=== PATIENT | male | born 1965 | race Caucasian/White ===

== ENCOUNTER 2019-12-14 07:30 | Day surgery (SDC) | payer BC, MEDICARE ==
--- NOTE | 2019-12-10 12:39 | EKG REPORT ---
SEVERITY:- NORMAL ECG - SINUS RHYTHM : Confirmed by: Elaine Centeno 10-Dec-2019 12:38:59
[2019-12-10 13:42] LABS: ABSOLUTE EOSINOPHILS # (AUTO) 0.3 10^3/uL (0.0-0.6); ABSOLUTE LYMPHOCYTES (AUTO) 1.2 10^3/uL (0.5-4.7); ABSOLUTE MONOCYTES (AUTO) 0.5 10^3/uL (0.1-1.4); ABSOLUTE NEUT (AUTO) 2.3 10^3/uL (1.7-8.2); BASOPHILS % (AUTO) 0.3 % (0-2); EOSINOPHILS % (AUTO) 6.4 % (0-6); HEMATOCRIT 39.6 % (37.9-51.0); HEMOGLOBIN 13.3 g/dL (13.5-17.0); LYMPHOCYTES % (AUTO) 28.7 % (13-45); MEAN CORPUSCULAR HEMOGLOBIN 29.4 pg (27.0-33.4); MEAN CORPUSCULAR HGB CONC 33.7 g/dL (32.0-36.0); MEAN CORPUSCULAR VOLUME 87 fl (80-97); MONOCYTES % (AUTO) 10.7 % (3-13); PLATELET COUNT 218 10^3/uL (150-450); RED BLOOD COUNT 4.54 10^6/uL (4.35-5.55); RED CELL DISTRIBUTION WIDTH 15.2 % (11.5-14.0); SEGMENTED NEUTROPHILS % (AUTO) 53.9 % (42-78); TOTAL CELLS COUNTED % (AUTO) 100 %; WHITE BLOOD COUNT 4.2 10^3/uL (4.0-10.5)
[2019-12-10 13:58] LABS: ANION GAP 9 (5-19); BLOOD UREA NITROGEN 14 mg/dL (7-20); CALCIUM 9.5 mg/dL (8.4-10.2); CARBON DIOXIDE 27 mmol/L (22-30); CHLORIDE 103 mmol/L (98-107); GLUCOSE 95 mg/dL (75-110); POTASSIUM 4.8 mmol/L (3.6-5.0)
[~2019-12-14 07:30] MED LIST: CEFAZOLIN 2 GM/D5W RTU 2 GM/50 ML RTUPB IV PRN; LACTATED RINGERS 1000 ML IV PRN; LIDOCAINE 0.5% INJ-PF (5 MG/ML) 50 ML SDV SUBCUT PRN
[2019-12-14 08:05] LABS: HEMATOCRIT 38.5 % (37.9-51.0); HEMOGLOBIN 12.9 g/dL (13.5-17.0); MEAN CORPUSCULAR HEMOGLOBIN 29.3 pg (27.0-33.4); MEAN CORPUSCULAR HGB CONC 33.5 g/dL (32.0-36.0); MEAN CORPUSCULAR VOLUME 87 fl (80-97); PLATELET COUNT 211 10^3/uL (150-450); RED BLOOD COUNT 4.41 10^6/uL (4.35-5.55); RED CELL DISTRIBUTION WIDTH 14.9 % (11.5-14.0); WHITE BLOOD COUNT 5.3 10^3/uL (4.0-10.5)
[2019-12-14] MEDS ORDERED: MEPERIDINE HCL/PF INJ 25 MG/1 ML DISP.SYRIN IV PRN (08:07)
[2019-12-14] MEDS ORDERED: DIPHENHYDRAMINE HCL 50 MG/ML VIAL IV PRN (08:07)
[2019-12-14] MEDS ORDERED: OXYCODONE-ACETAMINOPHEN 5-325 MG TABLET PO PRN ×3 (08:07→10:47)
[2019-12-14] MEDS ORDERED: PROMETHAZINE HCL INJ 25 MG/1 ML VIAL IV PRN ×2 (08:07)
[2019-12-14] MEDS ORDERED: FENTANYL CITRATE INJ/PF 100 MCG/2 ML AMPUL IV PRN ×3 (08:07)
[2019-12-14 08:08] LABS: PROTHROMBIN TIME 13.2 SEC (11.4-15.4)
[2019-12-14 08:09] LABS: PARTIAL THROMBOPLASTIN TIME 27.2 SEC (23.5-35.8)
[2019-12-14 08:27] LABS: ANION GAP 7 (5-19); BLOOD UREA NITROGEN 18 mg/dL (7-20); CALCIUM 9.3 mg/dL (8.4-10.2); CARBON DIOXIDE 29 mmol/L (22-30); CHLORIDE 104 mmol/L (98-107); GLUCOSE 101 mg/dL (75-110); POTASSIUM 4.6 mmol/L (3.6-5.0)
[2019-12-14] MEDS ORDERED: FENTANYL CITRATE INJ/PF 100 MCG/2 ML AMPUL ONE (09:08)
[2019-12-14] MEDS ORDERED: MIDAZOLAM 2 MG/2 ML INJ ONE (09:08)
[2019-12-14] MEDS ORDERED: PROPOFOL INJ 200 MG/20 ML VIAL IV ONE (09:09)
[2019-12-14] MEDS ORDERED: CEFAZOLIN 2 GM/D5W RTU 2 GM/50 ML RTUPB IV ONE (09:17)
[2019-12-14] MEDS ORDERED: BUPIVACAINE HCL 0.5 % INJ/PF 30 ML SDV ONE (09:22)
[2019-12-14] MEDS ORDERED: ONDANSETRON HCL INJ/PF 4 MG/2 ML SDV IV PRN (10:47)
[2019-12-14] MEDS ORDERED: MORPHINE SULFATE 10 MG/ML INJ IV PRN (10:47)
--- NOTE | 2019-12-14 10:52 | Operative Report ---
Operative Report DATE OF SURGERY: 12/14/19 PREOPERATIVE DIAGNOSIS: Left index traumatic amputation POSTOPERATIVE DIAGNOSIS: Same OPERATION: Left index ray resection SURGEON: KATIA GAXIOLA ANESTHESIA: GA COMPLICATIONS: None ESTIMATED BLOOD LOSS: Minimal PROCEDURE: Indication for above procedure: 54-year-old male who sustained a traumatic amputation to his left index finger which was closed primarily in the emergency room. Upon follow-up decision was made for observation. Patient's wound healed well however later he continued to have pain along the tip with redness and purulent drainage for which he was being treated in urgent care facility. MRI was then performed which demonstrated small fluid collection on the distal tip. Furthermore patient had complaints of difficulty upon gripping and grasping objects due to the contracture of his finger and limited usage at that point we discussed revision amputation versus ray resection after discussing risks and benefits decision was made to proceed with ray resection. Procedure In Detail: Patient was seen and evaluated in the preoperative holding area. The LEFT upper extremity was initialized and marked. Patient received 2g of Ancef IV for bacterial prophylaxis. Patient was taken back to the operative room where transferred to the operative table and placed under general anesthesia. Once they were adequately anesthetized a nonsterile tourniquet was placed on the upper extremity. A surgical team debriefing was performed ensuring all instrumentation was available, the surgical procedure was discussed with possible concerns reviewed. The upper extremity was prepped with chlorhexidine and alcohol and draped in a sterile fashion. A timeout was done identifying correct patient, procedure and extremity everyone in attendance agree with this and verbalized no concerns. The extremity was exsanguinated the tourniquet was inflated to 250 mmHg. Longitudinal skin incision made along the second metacarpal dorsally with a U- shaped extension and then extending into a chevron shaped skin incision volarly. Dissection was performed dorsally and a peripheral veins were coagulated with bipolar cautery. Superficial radial nerve was identified pulled on traction and cut to allow retraction deep to the proximal soft tissue. Sharp elevation was performed along the first dorsal interossei and second dorsal interossei and periosteum elevated from the proximal metacarpal base. ECRL insertion was identified along the metacarpal base and osteotomy performed distal to this insertion. Bone edges were freshened with a rasp and a saw to smooth the surface. Attention then turned to the volar surface. The radial and ulnar neurovascular bundle to the index finger were identified radial artery was coagulated. The radial digital nerve was resected proximal to the skin edge within the muscle belly of the interossei. The proper digital nerve to the index finger was t raced back to its exit from the common digital nerve to the second webspace and resected protecting the adjacent proper digital nerve to the middle finger. Once the nerves were protected remaining soft tissue was elevated from the metacarpal including the FDS/FDP which traction was applied and they were resected to allow retraction proximally. Volar plate was then excised and the remaining index amputated and sent to pathology. Wound was copiously irrigated with normal saline. Tourniquet was deflated any peripheral bleeding was controlled with bipolar cautery. The digital nerves were buried within the muscle belly of the interossei. Fascia of the interossei between the first and second dorsal interossei was approximated with 2-0 Vicryl suture. Skin edges were contoured to allow smooth transition from the thumb to the remaining middle finger. Subcutaneous tissues were closed with interrupted 4-0 Monocryl suture. Skin was closed interrupted and horizontal mattress 4-0 nylon suture. 30 cc of 0.5% Marcaine without epinephrine was injected for postoperative pain control. Soft dressing was placed. Sponge counts, instrument counts, needle counts were correct. Patient was then awoken from anesthesia. Transferred from the operating room table to the operating room stretcher. There was no intraoperative complications patient tolerated procedure well stable to PACU. Postop plan: Patient follow in the office in 2 weeks for wound check. Will begin range of motion immediately.
--- NOTE | 2019-12-14 10:53 | Discharge Summary ---
Discharge Summary (SDC) - Discharge Final Diagnosis: Left index traumatic amputation Date of Surgery: 12/14/19 Discharge Date: 12/14/19 Condition: Good Treatment or Instructions: Schedule Follow Up w/ Dr. Vishal Webster @ [facility] for Surgery to be seen in 10-14 days or as scheduled [place]: [place]: [place]: May remove dressing on postop day #3, keep incision covered and dry. Ice and elevate May begin finger range of motion attempting to make full fist. Stool softener of choice when on pain medication. USE OF [id number] IBUPROFEN: Ibuprofen (Advil, Nuprin, Medipren, Motrin IB) is a medication for fever and pain control. In addition, it has anti- inflammatory effects which may be beneficial, especially in the treatment of injuries. It's best to take ibuprofen with food. Persons with ulcer disease or allergy to aspirin should notify their physician of this before taking ibuprofen. Ibuprofen can be given every four to six hours, for a total of four doses daily. Age Pain or fever dose Antiinflammatory dose 6-8 yr 200 mg (1 tab) 200 mg (1 tab) 9-11 yr 200 mg (1 tab) 200-400 mg (1-2 tab) 11-14 yr 200-400 mg (1-2 tab) 400 mg (2 tab) 15-adult 400 mg (2 tab) 600 mg (3 tab) ORAL NARCOTIC MEDICATION: You have been given a prescription for pain control. This medication is a narcotic. It's best taken with food, as nausea can result if taken on an empty stomach. Don't operate machinery or drive within six hours of taking this medication. Do not combine this medicine with alcohol, or with any medication which can cause sedation (such as cold tablets or sleeping pills) unless you get permission from the physician. Narcotics tend to cause constipation. If possible, drink plenty of fluids and eat a diet high in fiber and fruits. Please be aware that prescription narcotics also have the potential for abuse. People become addicted to these medications because of the general sense of wellbeing that they induce. This feeling along with a significant reduction in tension, anxiety, and aggression provides a stimulating seductive quality to these drugs. Once your pain is under control, we encourage you to discard your unused narcotics. Prescriptions: Ketorolac Tromethamine [Toradol 10 mg Tablet] 10 mg PO Q8HP PRN #10 tablet PRN Reason: Oxycodone HCl/Acetaminophen [Percocet 5-325 mg Tablet] 1 tab PO Q6 PRN #25 tab PRN Reason: Discharge Diet: As Tolerated Respiratory Treatments at Home: Deep Breathing/Coughing, Incentive Spirometer Discharge Activity: No Lifting Over 10 Pounds Report the Following to Your Physician Immediately: Fever over 101 Degrees, Unusual Bleeding, Redness, Swelling, Warmth, Increased Soreness
[2019-12-14] MEDS ORDERED: OXYCODONE-ACETAMINOPHEN 5-325 MG TABLET ONE (11:22)
[2019-12-14 13:09] VITALS: BP 138/86
== END 2019-12-14 12:55 | disposition home or self-care (01) ==
LOC: OROUT 07:30
PROVIDERS: ATTEND Orthopaedic Surgery
DX: S68.61 Complete traumatic transphalangeal amputation of other and unspecified finger(s) (principal); X58.XXXD Exposure to other specified factors, subsequent encounter; M79.645 Pain in left finger(s); Z79.01 Long term (current) use of anticoagulants; Z03.818 Encounter for observation for suspected exposure to other biological agents ruled out; I10 Essential (primary) hypertension; Z86.73 Personal history of transient ischemic attack (TIA), and cerebral infarction without residual deficits; Z95.0 Presence of cardiac pacemaker; G40.909 Epilepsy, unspecified, not intractable, without status epilepticus; Z79.82 Long term (current) use of aspirin; Z79.899 Other long term (current) drug therapy
CPT/HCPCS: 93005; 36415 ×2; 85025; 85027; 85610; 85730; 80048 ×2; 93010; 26910; U0003; J2250; J3490; J3010; A9270; J2704; J0690; C9803; 87635; 88304